=== PATIENT | male | born 1960 | race Caucasian/White ===

== ENCOUNTER → 2020-07-08 | Emergency (ER) | payer OTHER ==
[~2020-07-08] VITALS: Ht 193 cm; Wt 94.1 kg
[2020-07-08 16:18] VITALS: BP 141/78
== END | disposition left against medical advice (07) ==
LOC: ER 16:17
DX: R20.0 Anesthesia of skin (principal); Z53.21 Procedure and treatment not carried out due to patient leaving prior to being seen by health care provider